=== PATIENT | male | born 1975 | race Caucasian/White ===

== ENCOUNTER 2019-10-25 17:06 | Emergency (ER) | payer SELFPAY ==
--- NOTE | 2019-10-25 17:58 | ER Document Report ---
ED Medical Screen (RME) - General Chief Complaint: Abdominal Pain Stated Complaint: ABDOMINAL PAIN Time Seen by Provider: 10/25/19 17:55 Mode of Arrival: Wheelchair Information source: Patient Notes: 44-year-old male presented to ED for left upper abdominal pain with nausea. He states the pain started between noon and 1:00. He states he was brought in by POV. He states he is got a sharp stabbing pain in the left upper abdomen and feels like he has been kicked in the testicles. States he does not have any history of kidney stones. Denies any major medical history. Denies any surgeri es states he does not smoke drinks weekly does not use any illicit drugs. I have greeted and performed a rapid initial assessment of this patient. A comprehensive ED assessment and evaluation of the patient, analysis of test results and completion of medical decision making process will be conducted by an additional ED providers. - Related Data Allergies/Adverse Reactions: No Known Allergies Allergy (Verified 10/25/19 17:55) Physical Exam - Vital signs Vitals: Temp Pulse Resp BP Pulse Ox 98.7 F 63 18 164/86 H 100 10/25/19 17:13 10/25/19 17:13 10/25/19 17:13 10/25/19 17:13 10/25/19 17:13 Course - Vital Signs Vital signs: Temp Pulse Resp BP Pulse Ox 98.7 F 63 18 164/86 H 100 10/25/19 17:13 10/25/19 17:13 10/25/19 17:13 10/25/19 17:13 10/25/19 17:13
[2019-10-25] MEDS ORDERED: KETOROLAC TROMETHAMINE INJ/PF 30 MG/1 ML SDV IV ONE (18:00)
[2019-10-25] MEDS ORDERED: NORMAL SALINE 1000 ML 1,000 ML IV ONE (18:00)
[2019-10-25 18:37] LABS: ABSOLUTE BASOPHILS # (AUTO) 0.1 10^3/uL (0.0-0.2); ABSOLUTE EOSINOPHILS # (AUTO) 0.1 10^3/uL (0.0-0.6); ABSOLUTE LYMPHOCYTES (AUTO) 1.3 10^3/uL (0.5-4.7); ABSOLUTE MONOCYTES (AUTO) 0.4 10^3/uL (0.1-1.4); BASOPHILS % (AUTO) 0.7 % (0-2); EOSINOPHILS % (AUTO) 1.7 % (0-6); HEMATOCRIT 39.4 % (37.9-51.0); LYMPHOCYTES % (AUTO) 16.1 % (13-45); MEAN CORPUSCULAR HGB CONC 32.9 g/dL (32.0-36.0); MEAN CORPUSCULAR VOLUME 76 fl (80-97); MONOCYTES % (AUTO) 5.1 % (3-13); PLATELET COUNT 246 10^3/uL (150-450); RED BLOOD COUNT 5.19 10^6/uL (4.35-5.55); RED CELL DISTRIBUTION WIDTH 15.8 % (11.5-14.0); SEGMENTED NEUTROPHILS % (AUTO) 76.4 % (42-78); TOTAL CELLS COUNTED % (AUTO) 100 %; WHITE BLOOD COUNT 7.9 10^3/uL (4.0-10.5)
--- NOTE | 2019-10-25 18:41 | RADIOLOGY REPORT (SQ) ---
EXAM DESCRIPTION: CT ABD/PELVIS NO ORAL OR IV IMAGES COMPLETED DATE/TIME: 10/25/2019 6:24 pm REASON FOR STUDY: Left flank pain COMPARISON: None. TECHNIQUE: CT scan of the abdomen and pelvis performed without intravenous or oral contrast. Images reviewed with lung, soft tissue, and bone windows. Reconstructed coronal and sagittal MPR images revi ewed. All images stored on PACS. All CT scanners at this facility use dose modulation, iterative reconstruction, and/or weight based d osing when appropriate to reduce radiation dose to as low as reasonably achievable (ALARA). [facility]: Dose Right [facility]: CareDose [facility]: Dose Right [facility]: Teradose 4D [facility]: Smart Actacell RADIATION DOSE: CT Rad equipment meets quality standard of care and radiation dose reduction techniq ues were employed. CTDIvol: 18.5 mGy. DLP: 1065 mGy-cm.mGy. LIMITATIONS: None. FINDINGS: LOWER CHEST: No significant findings. No nodules or infiltrates. NON-CONTRASTED LIVER, SPLEEN, ADRENALS: Evaluation limited by lack of IV contrast. No identified sign ificant masses. PANCREAS: No masses. No peripancreatic inflammatory changes. GALLBLADDER: No identified stones by CT criteria. No inflammatory changes to suggest cholecystitis. RIGHT KIDNEY AND URETER: No suspicious masses. Assessment limited by lack of IV contrast. No signif icant calcifications. No hydronephrosis or hydroureter. LEFT KIDNEY AND URETER: No suspicious masses. Assessment limited by lack of IV contrast. No signifi cant calcifications. Trace hydronephrosis and ureterectasis on the basis of a 4 x 2 x 4 mm distal u reterolith. AORTA AND RETROPERITONEUM: No aneurysm. No retroperitoneal masses or adenopathy. BOWEL AND PERITONEAL CAVITY: Few scattered colonic diverticula without focal inflammatory changes APPENDIX: Normal. PELVIS, BLADDER, AND ABDOMINAL WALL:No abnormal masses. No free fluid. Bladder normal. Bilateral fat containing inguinal hernias. BONES: Degenerative changes are seen of the hips and spine. OTHER: No other significant finding. IMPRESSION: Trace left-sided hydronephrosis and ureterectasis on the basis of a partially obstructin g 4 x 2 x 4 mm distal ureterolith. Other chronic and incidental findings as detailed above. COMMENT: Quality ID # [id number]: Final reports with documentation of one or more dose reduction techniques (e.g., Automated exposure control, adjustment of the mA and/or kV according to patient size, use of iterative reconstruction technique) TECHNICAL DOCUMENTATION: JOB ID: [id number] 2010 [employer]- All Rights Reserved Reading location - IP/workstation name: [email or web address]
[2019-10-25 18:43] LABS: ALBUMIN 4.6 g/dL (3.5-5.0); ALKALINE PHOSPHATASE 83 U/L (38-126); ANION GAP 11 (5-19); ASPARTATE AMINO TRANSFERASE 30 U/L (17-59); BILIRUBIN,TOTAL 0.4 mg/dL (0.2-1.3); BLOOD UREA NITROGEN 18 mg/dL (7-20); CALCIUM 9.7 mg/dL (8.4-10.2); CARBON DIOXIDE 25 mmol/L (22-30); CHLORIDE 105 mmol/L (98-107); GLUCOSE 116 mg/dL (75-110); POTASSIUM 4.2 mmol/L (3.6-5.0); TOTAL PROTEIN 7.7 g/dL (6.3-8.2)
[2019-10-25] MEDS ORDERED: MORPHINE SULFATE 10 MG/ML INJ IV ONE (19:09)
[2019-10-25 19:11] LABS: APPEARANCE,URINE SLIGHTLY-CLOUDY; BILIRUBIN,URINE NEGATIVE (NEGATIVE); COLOR,URINE YELLOW; GLUCOSE, URINE NEGATIVE (NEGATIVE); KETONES,URINE TRACE mg/dL (NEGATIVE); LEUKOCYTE ESTERASE,URINE NEGATIVE (NEGATIVE); NITRITE,URINE NEGATIVE (NEGATIVE); PROTEIN,URINE NEGATIVE (NEGATIVE); URINE SPECIFIC GRAVITY 1.014; UROBILINOGEN,URINE NEGATIVE mg/dL (<2.0)
[2019-10-25] MEDS ORDERED: OXYCODONE-ACETAMINOPHEN 5-325 MG TABLET PO ONE (20:19)
[2019-10-25] MEDS ORDERED: TAMSULOSIN HCL 0.4 MG CAP.SR.24H PO ONE (20:19)
--- NOTE | 2019-10-25 20:21 | ER Document Report ---
ED GI/ - General Chief Complaint: Possible Kidney Stone Stated Complaint: ABDOMINAL PAIN Time Seen by Provider: 10/25/19 17:55 Mode of Arrival: Wheelchair Notes: CHIEF COMPLAINT: Left flank pain for 2 days HPI: 44-year-old male with no prior history of kidney stones presenting with left flank pain that began yesterday but progressively worsened this afternoon with slight nausea no vomiting no fever. Pain is now in the left lower quadrant region. Does not hurt worse with movement. Denies penile or testicular pain ROS: See HPI - all other systems were reviewed and are otherwise negative Constitutional: no fever Eyes: no drainage, no blurred vision ENT: no runny nose, no sore throat Cardiovascular: no chest pain Resp: no SOB, no cough GI: no vomiting, no diarrhea, + abdominal pain, positive nausea : no dysuria Integumentary: no rash Allergy: no hives Musculoskeletal: no extremity pain or swelling Neurological: no numbness/tingling, no weakness MEDICATIONS: I agree with the patient medications as charted by the RN. ALLERGIES: I agree with the allergies as charted by the RN. PAST MEDICAL HISTORY/PAST SURGICAL HISTORY: Reviewed and agree as charted by RN. SOCIAL HISTORY: Reviewed and agree as charted by RN. FAMILY HISTORY: No significant familial comorbid conditions directly related to patient complaint EXAM: Reviewed vital signs as charted by RN. CONSTITUTIONAL: Alert and oriented and responds appropriately to questions. Well-appearing; well-nourished HEAD: Normocephalic; atraumatic EYES: PERRL; Conjunctivae clear, sclerae non-icteric ENT: normal nose; no rhinorrhea; moist mucous membranes NECK: Supple without meningismus CARD: RRR; no murmurs, no clicks, no rubs, no gallops; symmetric distal pulses RESP: Normal chest excursion without splinting or tachypnea; breath sounds clear and equal bilaterally; no wheezes, no rhonchi, no rales, pulse oximetry 98% on room air not hypoxic ABD/GI: Normal bowel sounds; non-distended; soft, mild tenderness left lower quadrant left lateral flank on palpation, no rebound, no guarding; no palpable organomegaly or masses. BACK: The back appears normal and is non-tender to palpation, there is no CVA tenderness EXT: Normal ROM in all joints; non-tender to palpation; no cyanosis, no effusions, no edema SKIN: Normal color for age and race; warm; dry; good turgor; no acute lesions noted NEURO: Moves all extremities equally; Motor and sensory function intact PSYCH: The patient's mood and manner are appropriate. Grooming and personal hygiene are appropriate. MDM: 44-year-old male with a 4 mm distal left ureteral stone. Mild elevation of his creatinine 1.66, is getting IV hydration. Will give additional pain medicines in the ER, spoke with the patient at length about kidney stones and management. He is from [place] and will be going back there tomorrow we will give him a copy of his imaging on disc to bring with him. - Related Data Allergies/Adverse Reactions: No Known Allergies Allergy (Verified 10/25/19 17:55) Home Medications: gerd - otc Past Medical History - General Information source: Patient - Social History Smoking Status: Never Smoker Chew tobacco use (# tins/day): No Frequency of alcohol use: Social Drug Abuse: None Family History: Reviewed & Not Pertinent Patient has homicidal ideation: No Physical Exam - Vital signs Vitals: Temp Pulse Resp BP Pulse Ox 98.7 F 63 18 164/86 H 100 10/25/19 17:13 10/25/19 17:13 10/25/19 17:13 10/25/19 17:13 10/25/19 17:13 Course - Vital Signs Vital signs: Temp Pulse Resp BP Pulse Ox 98.5 F 65 18 166/89 H 97 10/25/19 20:22 10/25/19 20:22 10/25/19 20:22 10/25/19 20:22 10/25/19 20:22 - Laboratory Result Diagrams: 10/25/19 18:08 10/25/19 18:08 Laboratory results interpreted by me: 10/25/19 10/25/19 10/25/19 18:08 18:08 18:45 Hgb 13.0 L MCV 76 L MCH 25.0 L RDW 15.8 H Creatinine 1.66 H Est GFR ( Amer) 54 L Est GFR (MDRD) Non-Af 45 L Glucose 116 H Urine Ketones TRACE H Urine Blood LARGE H Discharge - Discharge Clinical Impression: Kidney stone on left side, Elevated serum creatinine Condition: Stable Disposition: HOME, SELF-CARE Additional Instructions: 1. return to the ED for any fever, back pain or worsening condition 2. hydrate well at home to flush the system. 3. Percocet for pain, no driving if taking Percocet for pain 4. follow up with Urology for further evaluation and treatment Prescriptions: Tamsulosin HCl [Flomax 0.4 mg Cap.sr] 0.4 mg PO DAILY #7 cap.sr.24h Oxycodone HCl/Acetaminophen [Percocet 5-325 mg Tablet] 1 tab PO Q4H PRN #15 tab PRN Reason: Ondansetron [Zofran Odt 4 mg Tablet] 1 - 2 tab PO Q4H PRN #15 tab.rapdis PRN Reason: For Nausea/Vomiting
[2019-10-25 20:26] VITALS: BP 166/89
== END 2019-10-25 21:04 | disposition home or self-care (01) ==
LOC: ER 17:06
DX: N13.2 Hydronephrosis with renal and ureteral calculous obstruction (principal); R79.89 Other specified abnormal findings of blood chemistry; Z79.899 Other long term (current) drug therapy
CPT/HCPCS: 99285; 96374; 96375; 36415; 83690; 85025; 80053; 81001; 74176; J1885; J2270; J7030